=== PATIENT | male | born 1945 | race Caucasian/White ===

== ENCOUNTER 2017-01-17 07:08 | Inpatient (IN) | payer MEDICARE ==
[~2017-01-17] VITALS: Ht 180.3 cm; Wt 84.8 kg
--- NOTE | ~2017-01-17 | PROC NOTE ---
[place], [place] PROCEDURE NOTE NAME: NEHA MICHAEL JR UNIT #: [id number] ROOM: 403 DOCTOR: CAL VERNON BIRTHDATE: [birth year] DOS: 01/17/2017 MODIFIED BARIUM SWALLOW DOCTOR: Chance Garcia DO RADIOLOGIST: Rafael Soto MD BACKGROUND INFORMATION: The patient a 71-year-old male who was seen for modified barium swallow. This test was ordered to rule out aspiration. History is significant for right lower lobe pneumonia, GERD, AFib, DM and HTN. The patient currently receives a regular diet and thin liquids. For today's assessment, he was alert and able to follow all commands. Congested respirations were noted with frequent coughing displayed. Oral peripheral examination revealed presence of natural teeth, which were in good condition. Lingual, labial, and buccal skills were within normal limits in terms of strength, range of motion, and coordination. The patient was able to volitionally cough and swallow. METHODS AND MATERIALS USED FOR THE EXAM: The patient was positioned in the lateral plane and examination was viewed under fluoroscopy. The patient was presented with a variety of consistencies to assess swallowing skills including applesauce mixed with barium presented in half teaspoon amounts, barium-coated cookie presented in bite size piece and thin liquid barium taken by cup and straw. ORAL PHASE: Unremarkable. PHARYNGEAL PHASE: Unremarkable. ESOPHAGEAL PHASE: This phase of the swallow was not formally assessed during this examination. IMPRESSIONS AND RECOMMENDATIONS: Based upon assessment results, this 71-year-old patient presents with swallowing skills that are within normal limits. Recommend that he continue with regular diet and thin liquids. No followup therapy is warranted at this time. Results and recommendations were shared with the patient and his nurse and they verbalized understanding. Thank you very much for this referral. Should you have any questions regarding this patient, please contact the speech pathologist at [phone]. [place], [place] PROCEDURE NOTE NAME: NEHA MICHAEL JR UNIT #: [id number] ROOM: 403 DOCTOR: CAL VERNON BIRTHDATE: [birth year] CAL VERNON CM:PROCNOTE:PROCEDURE NOTE [id number] 11 CAL VERNON
[~2017-01-17 07:08] MED LIST: AUGMENTIN 875875 MG PO; CLONIDINE HCL0.1 MG PO; CLONIDINE0.1 MG PO; CLONIDINE0.2 MG PO; DICYCLOMINE10 MG PO; DILTIAZEM240 MG PO; DOXYCYCLINE100 M3 PO; HUMALOG100 U/ML SC; LANTUS100 U/ML SC; LEVAQUIN750 MG PO; LISINOPRIL AND1 TA2 PO; LISINOPRIL/HCTZ1 TA2 PO; LISINOPRIL10 MG PO; LOSARTAN POTAS100 M1 PO; NEXIUM40 MG PO; PREDNISONE20 MG PO; PROAIR HFA0.09 MG/AC INH; TAGAMET400 MG PO; VICODIN 500 MG-1 TAB PO; WARFARIN SOD5 MG PO; XARE20MG PO; ZOFRAN4 MG PO; Zofran4 MG PO
[2017-01-17 07:24] VITALS: BP 130/75
[2017-01-17 08:40] LABS: BASO % 0.8 % (0.0-1.0); EOS % 0.8 % (1.0-4.0); HEMATOCRIT 38.7 % (42.0-52.0); HEMOGLOBIN 13.4 g/dl (14.0-18.0); LYMPH # 0.7 10*3/uL (1.3-4.4); LYMPH % 17.4 % (27.0-41.0); MEAN CELL VOLUME 91.7 fl (80.0-94.0); MEAN CORPUSCULAR HGB 31.8 pg (27.0-31.0); MEAN CORPUSCULAR HGB CONC 34.6 g/dl (33.0-37.0); MEAN PLATELET VOLUME 10.3 fl (9.6-12.3); MONO # 0.3 10*3/uL (0.1-1.0); MONO % 7.6 % (3.0-9.0); NEUT # 2.9 10*3/uL (2.3-7.9); NEUT % 73.1 % (47.0-73.0); PLATELET COUNT AUTOMATED 206 10*3/uL (130-400); RED BLOOD COUNT 4.22 10*6/uL (4.50-5.90); RED CELL DISTRI WIDTH 11.9 % (0-14.5)
--- NOTE | 2017-01-17 08:51 | NUR ---
PT RETURNING FROM XRAY AT THIS TIME---VALERIE RUIZ RN
[2017-01-17 08:54] LABS: ALBUMIN 3.5 gm/dl (3.1-4.5); ALKALINE PHOSPHATASE 79 U/L (45-117); BUN 8 mg/dl (7-24); CHLORIDE 94 mmol/L (98-107); CREATININE 1.02 mg/dL (0.70-1.30); LIPASE 57 U/L (73-393); POTASSIUM 4.1 mmol/L (3.5-5.1); SGOT/AST 18 IU/L (3-35); SGPT/ALT 24 U/L (12-78); SODIUM 131 mmol/L (136-145); TOTAL PROTEIN 6.7 gm/dL (6.4-8.2)
[2017-01-17 10:37] VITALS: BP 140/71
--- NOTE | 2017-01-17 10:41 | NUR ---
IV LEVAQUIN STARTED.PT BEIND ADMITTED,VOICES UNDERSTANDING.VITALS STABLE.O2 2L APPLIED,PULSE OX 97 ON 2L.---VALERIE RUIZ RN
[2017-01-17 11:00] VITALS: BP 162/73
--- NOTE | 2017-01-17 11:00 | NUR ---
Time: 1100 A 71 year old FEMALE admitted to under services of NAM SCHMIDT DO. Pt. arrived via bed from ER. Chief complaint: RLL PNEUMONIA FAILED OUTPT TREATMENT. ONEIL RAZA
--- NOTE | 2017-01-17 11:42 | NUR ---
CALLED AND SPOKE WITH DR. COHN MADE AWARE PT MEDS ARE UPDATED AND ALSO PT C/O OF PAIN ON AND OFF ABOVE LEFT KNEE RECENTLY. NO INJURY PER PT RECENTLY.
--- NOTE | 2017-01-17 13:51 | NUR ---
CHANA COHN MADE AWARE HOME MEDICATIONS NEED ORDERED YET.
--- NOTE | 2017-01-17 15:06 | NUR ---
SPEECH PATHOLOGY Modified barium swallow completed as per orders to r/o aspiration. Patient is dx with right lower lobe pneumonia, GERD, HTN, GERD, DM. Patient was challenged with puree, solid food and thin liquid administered by cup and straw. Oral and pharyngeal swallowing skills were WNL. Recommend regular diet and thin liquid. No follow up therapy is warranted at this time. Results and recommendations were shared with patient and his nurse and they verbalized understanding. Dictated report to follow. Thank you for this referral. CAL VERNON MSCCC-INFORMATICS PHYSICIAN
--- NOTE | 2017-01-17 15:10 | NUR ---
PT RESTING IN BED. C/O NAUSEA, MEDICATED WITH ZOFRAN IV PER PRN ORDER, SEE EMAR. ALSO [id number], SEE EMAR. ONLY GAVE 8 UNITS PER PT REQUEST. CALL LIGHT IN REACH.
--- NOTE | 2017-01-17 15:29 | NUR ---
[facility] RE[facility]UC[facility]EX.
[2017-01-17 16:00] VITALS: BP 157/65
--- NOTE | 2017-01-17 16:00 | NUR ---
PT RESTING IN BED STATES MEDICAITON WAS EFFECTIVE. HE ORDERED DINNER. CALL LIGHT IN REACH.
--- NOTE | 2017-01-17 18:54 | NUR ---
PT RESTING IN BED WITH EYES CLOSED. RESP-EASY AND REGUAR. CALL LIGHT IN REACH.
[2017-01-17 19:16] LABS: INTERNATIONAL NORM RATIO 1.7 (2.0-3.5)
[2017-01-17 20:00] VITALS: BP 152/64
--- NOTE | 2017-01-17 22:37 | NUR ---
PATIENT RESTING IN BED WITH NO S/S OF DISTRESS. NO NEEDS MADE. ONLY WANTED 9 UNITS OF INSULIN INSTEAD OF 10. BED IN LOWEST POSITION, CALL LIGHT IN REACH
[2017-01-18] VITALS: BP 142/68
--- NOTE | 2017-01-18 00:54 | NUR ---
24 HR chart check completed.
[2017-01-18 04:00] VITALS: BP 138/70
--- NOTE | 2017-01-18 06:03 | NUR ---
BLOOD SUGAR CHECK WAS 166
--- NOTE | 2017-01-18 07:47 | NUR ---
MEDICATED WITH PRN ZOFRAN FOR COMPLAINTS OF NASEAU AND CONSTIPATIONFOR 5 DAYS.
[2017-01-18 08:00] VITALS: BP 141/73
--- NOTE | 2017-01-18 08:15 | NUR ---
Recruitment Manager in to talk to patient. Patient states lives at home alone. There are 3 steps in the home. Physician: Dr. Harpreet Yin Pharmacy: [facility] health services: none Patient's level of ADLs: INDEPENDENT Patient has working utilities: yes DME: none Follow-up physician's appointment after d/c: will be made by hospitalist nurse director upon discharge Does patient want to access PORTAL?: no Discharge plan discussed with patient. He lives in [place] and has neighbors that look out for him. He is independent in his ADLs and ambulation. When medically stable he will be discharged to home. KENRICK GRUBER
[2017-01-18 08:21] LABS: ALBUMIN 3.3 gm/dl (3.1-4.5); ALKALINE PHOSPHATASE 77 U/L (45-117); BUN 12 mg/dl (7-24); CHLORIDE 97 mmol/L (98-107); CHOLESTEROL 147 mg/dL (<200); CREATININE 0.98 mg/dL (0.70-1.30); FREE T4 1.38 ng/dl (0.76-1.46); HDL CHOLESTEROL 88 mg/dl (40-60); LDL CHOLESTEROL 45 mg/dL (9-159); POTASSIUM 3.6 mmol/L (3.5-5.1); SGOT/AST 15 IU/L (3-35); SGPT/ALT 23 U/L (12-78); TOTAL PROTEIN 6.5 gm/dL (6.4-8.2); TRIGLYCERIDES 70 mg/dl (<150); VLDL CHOLESTEROL 14 mg/dL (6-40)
[2017-01-18 08:22] LABS: BASO % 0.6 % (0.0-1.0); EOS % 0.9 % (1.0-4.0); HEMATOCRIT 38.1 % (42.0-52.0); HEMOGLOBIN 13.4 g/dl (14.0-18.0); LYMPH # 1.2 10*3/uL (1.3-4.4); LYMPH % 33.6 % (27.0-41.0); MEAN CELL VOLUME 91.1 fl (80.0-94.0); MEAN CORPUSCULAR HGB 32.1 pg (27.0-31.0); MEAN CORPUSCULAR HGB CONC 35.2 g/dl (33.0-37.0); MEAN PLATELET VOLUME 10.9 fl (9.6-12.3); MONO # 0.4 10*3/uL (0.1-1.0); NEUT # 1.8 10*3/uL (2.3-7.9); NEUT % 52.6 % (47.0-73.0); PLATELET COUNT AUTOMATED 200 10*3/uL (130-400); RED BLOOD COUNT 4.18 10*6/uL (4.50-5.90); RED CELL DISTRI WIDTH 11.9 % (0-14.5); WHITE BLOOD COUNT 3.4 10*3/uL (4.8-10.8)
[2017-01-18 08:25] LABS: SODIUM 132 mmol/L (136-145)
[2017-01-18 08:28] LABS: THYROID STIM HORMONE (HS) 0.447 uIU/ml (0.358-4.75)
[2017-01-18 08:49] LABS: PHOSPHOROUS 2.2 mg/dL (2.5-4.9)
[2017-01-18 09:03] LABS: INTERNATIONAL NORM RATIO 1.7 (2.0-3.5)
[2017-01-18 09:54] LABS: VITAMIN D, 25-HYDROXY 18.9 ng/mL (30-100)
[2017-01-18 12:00] VITALS: BP 130/63
[2017-01-18 16:00] VITALS: BP 141/57
[2017-01-18 20:00] VITALS: BP 156/70
--- NOTE | 2017-01-18 20:05 | NUR ---
DR LEE AWARE OF PATIENT REQUESTING NASAL SPRAY. STATES HE WILL PUT THAT IN
--- NOTE | 2017-01-18 22:20 | NUR ---
PATIENT RESTING IN BED WITH NO NEEDS MADE. BED IN LOWEST POSITION, CALL LIGHT IN REACH
[2017-01-19] VITALS: BP 128/71
--- NOTE | 2017-01-19 00:43 | NUR ---
24 HR chart check completed.
--- NOTE | 2017-01-19 02:59 | NUR ---
PATIENT RESTING IN BED WITH NO S/S OF DISTRESS. BED IN LOWEST POSITION, CALL LIGHT IN REACH
[2017-01-19 07:23] LABS: BASO % 0.3 % (0.0-1.0); HEMATOCRIT 36.1 % (42.0-52.0); HEMOGLOBIN 12.7 g/dl (14.0-18.0); LYMPH # 1.1 10*3/uL (1.3-4.4); LYMPH % 34.6 % (27.0-41.0); MEAN CELL VOLUME 90.7 fl (80.0-94.0); MEAN CORPUSCULAR HGB 31.9 pg (27.0-31.0); MEAN CORPUSCULAR HGB CONC 35.2 g/dl (33.0-37.0); MEAN PLATELET VOLUME 10.5 fl (9.6-12.3); MONO # 0.3 10*3/uL (0.1-1.0); MONO % 10.8 % (3.0-9.0); NEUT # 1.7 10*3/uL (2.3-7.9); NEUT % 52.7 % (47.0-73.0); PLATELET COUNT AUTOMATED 165 10*3/uL (130-400); RED BLOOD COUNT 3.98 10*6/uL (4.50-5.90); RED CELL DISTRI WIDTH 11.8 % (0-14.5); WHITE BLOOD COUNT 3.2 10*3/uL (4.8-10.8)
[2017-01-19 07:56] LABS: ALBUMIN 3.1 gm/dl (3.1-4.5); BUN 8 mg/dl (7-24); CHLORIDE 98 mmol/L (98-107); CREATININE 0.77 mg/dL (0.70-1.30); POTASSIUM 3.5 mmol/L (3.5-5.1); SGOT/AST 20 IU/L (3-35); SGPT/ALT 22 U/L (12-78); SODIUM 132 mmol/L (136-145)
[2017-01-19 07:57] LABS: ALKALINE PHOSPHATASE 71 U/L (45-117)
[2017-01-19 08:00] VITALS: BP 172/72
--- NOTE | 2017-01-19 08:00 | NUR ---
Engine Installer in to see patient. No new needs or request at this time. When medically stable he will be discharged to home.
[2017-01-19] MEDS ORDERED: NEXIUM40 MG PO (11:43)
[2017-01-19 12:00] VITALS: BP 136/65
[2017-01-19 16:00] VITALS: BP 156/71
--- NOTE | 2017-01-19 19:13 | NUR ---
PT C/O NAUSEA, PRN ZOFRAN GIVEN EPR ORDER
[2017-01-19 20:00] VITALS: BP 162/67
--- NOTE | 2017-01-19 21:14 | NUR ---
Medicated with Phenergan po x1 dose for continued nausea. Will monitor effectiveness. Call light within reach.
[2017-01-20] VITALS: BP 126/65
--- NOTE | 2017-01-20 00:16 | NUR ---
24 HR chart check completed.
[2017-01-20 07:23] LABS: BASO % 0.6 % (0.0-1.0); EOS # 0.1 10*3/uL (0.0-0.4); EOS % 3.6 % (1.0-4.0); HEMATOCRIT 36.9 % (42.0-52.0); HEMOGLOBIN 12.8 g/dl (14.0-18.0); LYMPH # 1.5 10*3/uL (1.3-4.4); LYMPH % 42.6 % (27.0-41.0); MEAN CELL VOLUME 90.9 fl (80.0-94.0); MEAN CORPUSCULAR HGB 31.5 pg (27.0-31.0); MEAN CORPUSCULAR HGB CONC 34.7 g/dl (33.0-37.0); MEAN PLATELET VOLUME 10.3 fl (9.6-12.3); MONO # 0.4 10*3/uL (0.1-1.0); MONO % 10.4 % (3.0-9.0); NEUT # 1.5 10*3/uL (2.3-7.9); NEUT % 42.5 % (47.0-73.0); PLATELET COUNT AUTOMATED 183 10*3/uL (130-400); RED BLOOD COUNT 4.06 10*6/uL (4.50-5.90); WHITE BLOOD COUNT 3.6 10*3/uL (4.8-10.8)
[2017-01-20 07:32] LABS: BUN 9 mg/dl (7-24); CHLORIDE 96 mmol/L (98-107); CREATININE 0.93 mg/dL (0.70-1.30); POTASSIUM 3.7 mmol/L (3.5-5.1); SODIUM 131 mmol/L (136-145)
[2017-01-20 07:56] LABS: INTERNATIONAL NORM RATIO 2.1 (2.0-3.5)
[2017-01-20 08:00] VITALS: BP 139/64
--- NOTE | 2017-01-20 08:15 | NUR ---
Digital Photographer in to see patient. He is sitting up on the edge of his bed. Denies any home needs at this time. When medically stable he will be discharged to home.
[2017-01-20] MEDS ORDERED: PHENERGAN25 M3 PO (11:26)
[2017-01-20] MEDS ORDERED: LEVAQUIN750 M1 PO (11:26)
--- NOTE | 2017-01-20 12:34 | NUR ---
Discharge instructions reviewed with patient/family. Patient receptive and verbalizes understanding. Follow-up care arranged. Written instructions given to patient/family. STEVE MCELROY
== END 2017-01-20 12:34 | disposition home or self-care (01) | DRG 178 ==
LOC: ED 07:08 → EDHOLD 10:15 → 4E 10:15
PROVIDERS: Emergency Medicine; Internal Medicine; Student in an Organized Health Care Education/Training Program; ADMIT Internal Medicine
PROC: BD11YZZ Fluoroscopy of Esophagus using Other Contrast (ICD-10-PCS; principal; 2017-01-17)
DX: J15.6 Pneumonia due to other Gram-negative bacteria (principal); E87.1 Hypo-osmolality and hyponatremia; E11.649 Type 2 diabetes mellitus with hypoglycemia without coma; E11.65 Type 2 diabetes mellitus with hyperglycemia; I48.0 Paroxysmal atrial fibrillation; E87.8 Other disorders of electrolyte and fluid balance, not elsewhere classified; D64.9 Anemia, unspecified; R11.0 Nausea; K21.9 Gastro-esophageal reflux disease without esophagitis; D72.810 Lymphocytopenia; I10 Essential (primary) hypertension; Z88.8 Allergy status to other drugs, medicaments and biological substances; Z79.2 Long term (current) use of antibiotics; Z90.49 Acquired absence of other specified parts of digestive tract; Z79.4 Long term (current) use of insulin; Z78.9 Other specified health status; Z85.820 Personal history of malignant melanoma of skin; Z87.891 Personal history of nicotine dependence; Z80.9 Family history of malignant neoplasm, unspecified; Z82.3 Family history of stroke; Z79.01 Long term (current) use of anticoagulants; Z79.899 Other long term (current) drug therapy

== ENCOUNTER 2017-09-12 06:22 | Emergency (ER) | payer MEDICARE ==
[~2017-09-12] VITALS: Ht 177.8 cm; Wt 87.1 kg
[~2017-09-12 06:22] MED LIST changes: +LEVAQUIN750 M1 PO; +PHENERGAN25 M3 PO
[2017-09-12 07:54] VITALS: BP 171/81
== END 2017-09-12 09:09 | disposition home or self-care (01) ==
LOC: ED 06:22
DX: S93.602A Unspecified sprain of left foot, initial encounter (principal); K21.9 Gastro-esophageal reflux disease without esophagitis; I10 Essential (primary) hypertension; E11.9 Type 2 diabetes mellitus without complications; I48.91 Unspecified atrial fibrillation; Z88.8 Allergy status to other drugs, medicaments and biological substances; Z79.2 Long term (current) use of antibiotics; Z79.4 Long term (current) use of insulin; Z79.899 Other long term (current) drug therapy; Y93.H2 Activity, gardening and landscaping; Y93.89 Activity, other specified; Y92.89 Other specified places as the place of occurrence of the external cause; Y99.8 Other external cause status

== ENCOUNTER → 2019-01-16 | Outpatient (CLI) | payer MEDICARE ==
[2019-01-16 12:06] LABS: HEMATOCRIT 44.9 % (42.0-52.0); HEMOGLOBIN 15.1 g/dl (14.0-18.0); MEAN CELL VOLUME 94.1 fl (80.0-94.0); MEAN CORPUSCULAR HGB 31.7 pg (27.0-31.0); MEAN CORPUSCULAR HGB CONC 33.6 g/dl (33.0-37.0); MEAN PLATELET VOLUME 10.4 fl (9.6-12.3); RED BLOOD COUNT 4.77 10*6/uL (4.50-5.90); RED CELL DISTRI WIDTH 12.3 % (0-14.5); WHITE BLOOD COUNT 6.9 10*3/uL (4.8-10.8)
[2019-01-16 12:36] LABS: ALBUMIN 3.8 gm/dl (3.1-4.5); BUN 12 mg/dl (7-24); CHLORIDE 106 mmol/L (98-107); CHOLESTEROL 207 mg/dL (<200); CREATININE 0.99 mg/dL (0.70-1.30); POTASSIUM 3.6 mmol/L (3.5-5.1); SGOT/AST 18 IU/L (3-35); SGPT/ALT 30 U/L (12-78); SODIUM 138 mmol/L (136-145); TRIGLYCERIDES 41 mg/dl (<150); VLDL CHOLESTEROL 8 mg/dL (6-40)
[2019-01-16 12:46] LABS: ALKALINE PHOSPHATASE 86 U/L (45-117); HDL CHOLESTEROL 123 mg/dl (40-60); LDL CHOLESTEROL 76 mg/dL (9-159); TOTAL PROTEIN 7.6 gm/dL (6.4-8.2)
== END | disposition home or self-care (01) ==
LOC: LAB 11:45
PROVIDERS: Family Medicine
DX: E11.9 Type 2 diabetes mellitus without complications (principal); I10 Essential (primary) hypertension; E55.9 Vitamin D deficiency, unspecified; R53.83 Other fatigue

== ENCOUNTER 2019-02-16 08:10 | Inpatient (IN) | payer MEDICARE ==
[2019-02-16] VITALS (9 sets, daily range): BP systolic 141–192; BP diastolic 60–84
[~2019-02-16] VITALS: Ht 177.8 cm; Wt 87.5 kg
[2019-02-16 08:53] LABS: BASO # 0.1 10*3/uL (0.0-0.1); BASO % 1.1 % (0.0-1.0); EOS # 0.1 10*3/uL (0.0-0.4); HEMOGLOBIN 13.9 g/dl (14.0-18.0); LYMPH # 1.5 10*3/uL (1.3-4.4); MEAN CELL VOLUME 96.2 fl (80.0-94.0); MEAN CORPUSCULAR HGB 32.6 pg (27.0-31.0); MEAN CORPUSCULAR HGB CONC 33.9 g/dl (33.0-37.0); MEAN PLATELET VOLUME 10.4 fl (9.6-12.3); MONO # 0.4 10*3/uL (0.1-1.0); NEUT # 4.8 10*3/uL (2.3-7.9); NEUT % 68.6 % (47.0-73.0); PLATELET COUNT AUTOMATED 255 10*3/uL (130-400); RED BLOOD COUNT 4.26 10*6/uL (4.50-5.90); RED CELL DISTRI WIDTH 12.2 % (0-14.5)
[2019-02-16 09:06] LABS: INTERNATIONAL NORM RATIO 2.1 (2.0-3.5)
[2019-02-16 09:12] LABS: ALBUMIN 3.7 gm/dl (3.1-4.5); ALKALINE PHOSPHATASE 80 U/L (45-117); BUN 12 mg/dl (7-24); CHLORIDE 103 mmol/L (98-107); CREATININE 1.15 mg/dL (0.70-1.30); POTASSIUM 3.7 mmol/L (3.5-5.1); SGOT/AST 16 IU/L (3-35); SGPT/ALT 29 U/L (12-78); SODIUM 138 mmol/L (136-145)
[2019-02-16 09:18] LABS: TROPONIN I < 0.015 ng/ml (<0.045)
--- NOTE | 2019-02-16 10:54 | NUR ---
A 73, admitted to , under the services of Dr. SUNITA BARCENAS,SUZIE Barcenas with a diagnosis of CHEST PAIN. Chief complaint is HIGH BLOOD PRESSURE AT HOME. Patient arrived via WC from ER. Monitor applied. Initial assessment completed. Vital signs taken and recorded. DR. SUNITA BARCENAS,SUZIE Barcenas notified of admission to the 4E. See assessment for past medical history, medications and allergies. Patient and/or family oriented to unit. [address] visitation policy reviewed. Clothing/patient valuable form completed. KASSANDRA HUNT
[2019-02-16] MEDS ORDERED: NEXIUM40 MG PO (11:06)
[2019-02-16] MEDS ORDERED: HYDR25T PO (13:03)
--- NOTE | 2019-02-16 13:44 | NUR ---
ANSWERING SERVICE FOR DR. BRUNER NOTIFIED....DR. MRAIN TAKING CALLS.
--- NOTE | 2019-02-16 21:32 | NUR ---
BLOOD SUGAR OBTAINED, 70. NO S/S NEEDED AND PT REFUSES LANTUS. PT STATES THAT HIS BLOOD SUGAR "WILL BOTTOM OUT". SNACK PROVIDED TO PATIENT. ASSESSMENT COMPLETE. NO COMPLAINTS ARE VOICED AT THIS TIME. RESPIRATIONS UNLABORED ON ROOM ON AIR. WILL CONTINUE TO MONITOR. CALL LIGHT IN REACH.
[2019-02-17] VITALS: BP 152/71
--- NOTE | 2019-02-17 | NUR ---
PT RESTING IN BED. RESPIRATIONS EASY AND UNLABORED ON ROOM AIR. NO S/S OF DISTRESS NOTED. CALL LIGHT IN REACH. SAFETY MEASAURES IN PLACE, WILL CONTINUE TO MONITOR.
[2019-02-17 08:00] VITALS: BP 168/70
--- NOTE | 2019-02-17 10:03 | NUR ---
Dietary Internship in to talk to patient. Patient states lives at HOME with ALONE. There are 2 steps in the home. Physician: IGNACIA Pharmacy: [facility] health services: NONE Patient's level of ADLs: INDEPENDENT Patient has working utilities: YES DME: NONE Follow-up physician's appointment after d/c: WILL BE MADE BY HOSPITALIST NURSE DIRECTOR Does patient want to access PORTAL?: NO Discharge plan PT LIVES AT HOME ALONE AND IS INDEPENDENT IN HIS CARE. DENIES ANY NEEDS ON DISCHARGE. PLAN IS TO RETURN HOME WHEN MEDICALLY STABLE. WILL CONTINUE TO FOLLOW. PT STATES HE WILL HAVE A RIDE HOME. . MARIA C BROWN
[2019-02-17 12:00] VITALS: BP 154/71
--- NOTE | 2019-02-17 12:00 | NUR ---
PATIENT WANTING TO LEAVE, CALLED DR. DORSEY WHO STATED HE WOULD BE IN IN A LITTLE WHILE. PATIENT TOOK OFF HEART MONITOR AND HAD THIS RN TAKE OUT HIS IV.
--- NOTE | 2019-02-17 13:50 | NUR ---
PATIENT DISCHARGED TO HOME.
== END 2019-02-17 13:50 | disposition home or self-care (01) | DRG 313 ==
LOC: ED 08:10 → EDHOLD 10:04 → 4E 10:29
PROVIDERS: Internal Medicine; ADMIT Internal Medicine
DX: R07.89 Other chest pain (principal); I16.1 Hypertensive emergency; I10 Essential (primary) hypertension; E11.9 Type 2 diabetes mellitus without complications; I48.0 Paroxysmal atrial fibrillation; K21.0 Gastro-esophageal reflux disease with esophagitis; Z88.8 Allergy status to other drugs, medicaments and biological substances; Z79.01 Long term (current) use of anticoagulants; Z85.828 Personal history of other malignant neoplasm of skin; Z87.891 Personal history of nicotine dependence; Z82.3 Family history of stroke; Z80.9 Family history of malignant neoplasm, unspecified; Z82.49 Family history of ischemic heart disease and other diseases of the circulatory system; Z79.899 Other long term (current) drug therapy

== ENCOUNTER → 2019-04-17 | Outpatient (CLI) | payer MEDICARE ==
[~2019-04-17] MED LIST changes: +HYDR25T PO
[2019-04-17 10:07] LABS: HEMATOCRIT 40.2 % (42.0-52.0); HEMOGLOBIN 13.4 g/dl (14.0-18.0); MEAN CELL VOLUME 95.9 fl (80.0-94.0); MEAN CORPUSCULAR HGB CONC 33.3 g/dl (33.0-37.0); MEAN PLATELET VOLUME 10.4 fl (9.6-12.3); RED BLOOD COUNT 4.19 10*6/uL (4.50-5.90); RED CELL DISTRI WIDTH 12.4 % (0-14.5); WHITE BLOOD COUNT 5.1 10*3/uL (4.8-10.8)
[2019-04-17 10:38] LABS: ALBUMIN 3.5 gm/dl (3.1-4.5); CHLORIDE 104 mmol/L (98-107); POTASSIUM 3.6 mmol/L (3.5-5.1); SODIUM 138 mmol/L (136-145)
[2019-04-17 10:42] LABS: ALKALINE PHOSPHATASE 79 U/L (45-117); BUN 7 mg/dl (7-24); CHOLESTEROL 180 mg/dL (<200); CPK 69 U/L (39-308); CREATININE 0.96 mg/dL (0.70-1.30); HDL CHOLESTEROL 114 mg/dl (40-60); LDL CHOLESTEROL 53 mg/dL (9-159); SGOT/AST 18 IU/L (3-35); SGPT/ALT 28 U/L (12-78); TOTAL PROTEIN 6.7 gm/dL (6.4-8.2); TRIGLYCERIDES 64 mg/dl (<150); VLDL CHOLESTEROL 13 mg/dL (6-40)
== END | disposition home or self-care (01) ==
LOC: LAB 09:30
PROVIDERS: Family Medicine
DX: E11.9 Type 2 diabetes mellitus without complications (principal); I10 Essential (primary) hypertension; E78.00 Pure hypercholesterolemia, unspecified; I25.10 Atherosclerotic heart disease of native coronary artery without angina pectoris; E55.9 Vitamin D deficiency, unspecified

== ENCOUNTER → 2019-04-23 | Outpatient (CLI) | payer MEDICARE | END | disposition home or self-care (01) | LOC: LAB 10:26 | DX: E11.9 Type 2 diabetes mellitus without complications (principal) ==

== ENCOUNTER → 2019-08-26 | Outpatient (CLI) | payer MEDICARE ==
[2019-08-26 10:30] LABS: HEMATOCRIT 40.1 % (42.0-52.0); MEAN CELL VOLUME 93.9 fl (80.0-94.0); MEAN CORPUSCULAR HGB 31.4 pg (27.0-31.0); MEAN CORPUSCULAR HGB CONC 33.4 g/dl (33.0-37.0); MEAN PLATELET VOLUME 10.5 fl (9.6-12.3); RED BLOOD COUNT 4.27 10*6/uL (4.50-5.90); RED CELL DISTRI WIDTH 12.3 % (0-14.5); WHITE BLOOD COUNT 5.4 10*3/uL (4.8-10.8)
[2019-08-26 11:03] LABS: ALBUMIN 3.6 gm/dl (3.1-4.5); ALKALINE PHOSPHATASE 85 U/L (45-117); BUN 10 mg/dl (7-24); CHLORIDE 102 mmol/L (98-107); CHOLESTEROL 184 mg/dL (<200); CREATININE 0.97 mg/dL (0.70-1.30); HDL CHOLESTEROL 113 mg/dl (40-60); LDL CHOLESTEROL 62 mg/dL (9-159); POTASSIUM 3.9 mmol/L (3.5-5.1); SGOT/AST 17 IU/L (3-35); SGPT/ALT 23 U/L (12-78); SODIUM 135 mmol/L (136-145); TOTAL PROTEIN 6.9 gm/dL (6.4-8.2); TRIGLYCERIDES 46 mg/dl (<150); VLDL CHOLESTEROL 9 mg/dL (6-40)
== END | disposition home or self-care (01) ==
LOC: LAB 09:20
PROVIDERS: Family Medicine
DX: E11.9 Type 2 diabetes mellitus without complications (principal); E55.9 Vitamin D deficiency, unspecified; E78.00 Pure hypercholesterolemia, unspecified

== ENCOUNTER → 2020-12-23 | Outpatient (CLI) | payer MEDICARE | END | disposition home or self-care (01) | LOC: RESCLI 00:38 | PROVIDERS: ATTEND Student in an Organized Health Care Education/Training Program | DX: I10 Essential (primary) hypertension (principal); E11.9 Type 2 diabetes mellitus without complications; I48.91 Unspecified atrial fibrillation; K21.9 Gastro-esophageal reflux disease without esophagitis; K59.00 Constipation, unspecified; Z87.891 Personal history of nicotine dependence; Z72.89 Other problems related to lifestyle; Z98.890 Other specified postprocedural states; Z79.01 Long term (current) use of anticoagulants; Z79.899 Other long term (current) drug therapy ==

== ENCOUNTER → 2021-06-25 | Outpatient (CLI) | payer MEDICARE | END | disposition home or self-care (01) | LOC: RESCLI 00:45 | PROVIDERS: ATTEND Internal Medicine | DX: K21.9 Gastro-esophageal reflux disease without esophagitis (principal); E11.9 Type 2 diabetes mellitus without complications; I10 Essential (primary) hypertension; I48.91 Unspecified atrial fibrillation; Z79.899 Other long term (current) drug therapy; Z98.890 Other specified postprocedural states ==

== ENCOUNTER → 2021-06-28 | Outpatient (CLI) | payer MEDICARE ==
[2021-06-28 09:47] LABS: BASO % 0.6 % (0.0-1.0); EOS # 0.2 10*3/uL (0.0-0.4); EOS % 2.9 % (1.0-4.0); HEMATOCRIT 34.9 % (42.0-52.0); LYMPH # 1.3 10*3/uL (1.3-4.4); LYMPH % 17.5 % (27.0-41.0); MEAN CELL VOLUME 90.4 fl (80.0-94.0); MEAN CORPUSCULAR HGB 29.5 pg (27.0-31.0); MEAN CORPUSCULAR HGB CONC 32.7 g/dl (33.0-37.0); MEAN PLATELET VOLUME 9.8 fl (9.6-12.3); MONO # 0.4 10*3/uL (0.1-1.0); NEUT # 5.2 10*3/uL (2.3-7.9); NEUT % 72.7 % (47.0-73.0); PLATELET COUNT AUTOMATED 338 10*3/uL (130-400); RED BLOOD COUNT 3.86 10*6/uL (4.50-5.90); RED CELL DISTRI WIDTH 13.4 % (0-14.5); WHITE BLOOD COUNT 7.2 10*3/uL (4.8-10.8)
[2021-06-28 10:15] LABS: CHLORIDE 107 mmol/L (98-107); SODIUM 139 mmol/L (136-145)
[2021-06-28 10:23] LABS: ALKALINE PHOSPHATASE 93 U/L (45-117); BUN 12 mg/dl (7-24); CHOLESTEROL 159 mg/dL (<200); CREATININE 0.92 mg/dL (0.70-1.30); LDL CHOLESTEROL 46 mg/dL (9-159); SGOT/AST 13 IU/L (3-35); SGPT/ALT 19 U/L (12-78); TOTAL PROTEIN 6.8 gm/dL (6.4-8.2); TRIGLYCERIDES 40 mg/dl (<150)
[2021-06-29 08:09] LABS: HEPATITIS B SURFACE AG Negative (Negative)
== END | disposition home or self-care (01) ==
LOC: LAB 09:15
PROVIDERS: ATTEND Internal Medicine
DX: E11.9 Type 2 diabetes mellitus without complications (principal); Z72.89 Other problems related to lifestyle; Z12.5 Encounter for screening for malignant neoplasm of prostate

== ENCOUNTER → 2021-12-23 | Outpatient (CLI) | payer MEDICARE ==
[2021-12-23 15:32] LABS: BUN 12 mg/dl (7-24); CHLORIDE 107 mmol/L (98-107); CHOLESTEROL 181 mg/dL (<200); CREATININE 1.15 mg/dL (0.70-1.30); POTASSIUM 3.8 mmol/L (3.5-5.1); SODIUM 141 mmol/L (136-145); TRIGLYCERIDES 45 mg/dl (<150)
[2021-12-23 15:33] LABS: LDL CHOLESTEROL 66 mg/dL (9-159)
== END | disposition home or self-care (01) ==
LOC: RESCLI 00:54
PROVIDERS: ATTEND Internal Medicine
DX: E11.9 Type 2 diabetes mellitus without complications (principal); K21.9 Gastro-esophageal reflux disease without esophagitis; I10 Essential (primary) hypertension; I48.91 Unspecified atrial fibrillation; Z88.8 Allergy status to other drugs, medicaments and biological substances; Z87.891 Personal history of nicotine dependence; Z98.890 Other specified postprocedural states; Z82.49 Family history of ischemic heart disease and other diseases of the circulatory system; Z79.4 Long term (current) use of insulin; Z79.899 Other long term (current) drug therapy

== ENCOUNTER → 2022-03-31 | Outpatient (CLI) | payer MEDICARE | END | disposition home or self-care (01) | LOC: RESCLI 00:46 | PROVIDERS: ATTEND Student in an Organized Health Care Education/Training Program | DX: I10 Essential (primary) hypertension (principal); I48.91 Unspecified atrial fibrillation; E11.9 Type 2 diabetes mellitus without complications; K21.9 Gastro-esophageal reflux disease without esophagitis; Z98.890 Other specified postprocedural states; Z82.49 Family history of ischemic heart disease and other diseases of the circulatory system; F10.90 Alcohol use, unspecified, uncomplicated; Z79.01 Long term (current) use of anticoagulants; Z79.4 Long term (current) use of insulin; Z79.899 Other long term (current) drug therapy ==

== ENCOUNTER → 2022-05-17 | Outpatient (CLI) | payer MEDICARE ==
[2022-05-17 11:33] LABS: BUN 9 mg/dl (9-23); CHLORIDE 103 mmol/L (98-107); POTASSIUM 4.2 mmol/L (3.4-5.1)
== END | disposition home or self-care (01) ==
LOC: RESCLI 05-16 16:04
PROVIDERS: Internal Medicine; ATTEND Family Medicine
DX: I11.0 Hypertensive heart disease with heart failure (principal); I50.9 Heart failure, unspecified; K21.9 Gastro-esophageal reflux disease without esophagitis; E11.9 Type 2 diabetes mellitus without complications; I48.91 Unspecified atrial fibrillation; Z88.8 Allergy status to other drugs, medicaments and biological substances; Z98.890 Other specified postprocedural states; Z79.01 Long term (current) use of anticoagulants; Z79.899 Other long term (current) drug therapy

== ENCOUNTER → 2022-06-21 | Outpatient (CLI) | payer MEDICARE | END | disposition home or self-care (01) | LOC: RESCLI 00:41 | PROVIDERS: ATTEND Internal Medicine | DX: R06.09 Other forms of dyspnea (principal); I11.0 Hypertensive heart disease with heart failure; I50.30 Unspecified diastolic (congestive) heart failure; K21.9 Gastro-esophageal reflux disease without esophagitis; E11.9 Type 2 diabetes mellitus without complications; I48.91 Unspecified atrial fibrillation; Z88.8 Allergy status to other drugs, medicaments and biological substances; Z87.891 Personal history of nicotine dependence; Z79.01 Long term (current) use of anticoagulants; Z98.890 Other specified postprocedural states; Z79.899 Other long term (current) drug therapy ==

== ENCOUNTER 2022-06-30 17:48 | Inpatient (IN) | payer MEDICARE ==
[~2022-06-30] VITALS: Ht 177.8 cm; Wt 97.5 kg
[2022-06-30 17:57] VITALS: BP 158/73
[2022-06-30 18:20] LABS: BASO # 0.1 10*3/uL (0.0-0.1); BASO % 1.3 % (0.0-1.0); EOS # 0.1 10*3/uL (0.0-0.4); EOS % 2.7 % (1.0-4.0); HEMATOCRIT 33.5 % (42.0-52.0); LYMPH # 1.7 10*3/uL (1.3-4.4); LYMPH % 32.2 % (27.0-41.0); MEAN CELL VOLUME 82.1 fl (80.0-94.0); MEAN CORPUSCULAR HGB 25.5 pg (27.0-31.0); MEAN PLATELET VOLUME 9.5 fl (9.6-12.3); MONO # 0.4 10*3/uL (0.1-1.0); MONO % 6.8 % (3.0-9.0); NEUT % 56.8 % (47.0-73.0); PLATELET COUNT AUTOMATED 360 10*3/uL (130-400); RED BLOOD COUNT 4.08 10*6/uL (4.50-5.90); RED CELL DISTRI WIDTH 15.4 % (0-14.5); WHITE BLOOD COUNT 5.3 10*3/uL (4.8-10.8)
[2022-06-30 18:44] LABS: ALKALINE PHOSPHATASE 81 U/L (46-116); BUN 9 mg/dl (9-23); CHLORIDE 101 mmol/L (98-107); POTASSIUM 3.9 mmol/L (3.4-5.1); SGPT/ALT 17 U/L (10-49); TOTAL PROTEIN 6.7 gm/dL (6.0-8.0)
[2022-06-30 19:01] VITALS: BP 134/77
[2022-06-30 20:35] LABS: INTERNATIONAL NORM RATIO 1.2 (2.0-3.5)
[2022-06-30 20:40] VITALS: BP 141/74
[2022-06-30] MEDS ORDERED: ENTRESTO 24 MG1 EACH PO (21:03)
[2022-06-30] MEDS ORDERED: FUROSEMIDE40 MG PO (21:04)
[2022-06-30] MEDS ORDERED: XARE20MG PO (21:04)
[2022-07-01] VITALS: BP 130/83
[2022-07-01 06:25] LABS: BASO # 0.1 10*3/uL (0.0-0.1); BASO % 1.3 % (0.0-1.0); EOS # 0.3 10*3/uL (0.0-0.4); EOS % 6.1 % (1.0-4.0); HEMATOCRIT 33.8 % (42.0-52.0); LYMPH # 1.6 10*3/uL (1.3-4.4); LYMPH % 34.9 % (27.0-41.0); MEAN CELL VOLUME 83.7 fl (80.0-94.0); MEAN CORPUSCULAR HGB 25.5 pg (27.0-31.0); MEAN CORPUSCULAR HGB CONC 30.5 g/dl (33.0-37.0); MONO # 0.5 10*3/uL (0.1-1.0); MONO % 11.4 % (3.0-9.0); NEUT # 2.1 10*3/uL (2.3-7.9); NEUT % 45.9 % (47.0-73.0); PLATELET COUNT AUTOMATED 358 10*3/uL (130-400); RED BLOOD COUNT 4.04 10*6/uL (4.50-5.90); RED CELL DISTRI WIDTH 15.5 % (0-14.5); WHITE BLOOD COUNT 4.6 10*3/uL (4.8-10.8)
[2022-07-01 06:32] LABS: ALKALINE PHOSPHATASE 66 U/L (46-116); BUN 9 mg/dl (9-23); CHLORIDE 104 mmol/L (98-107); CHOLESTEROL 147 mg/dL (<200); FREE T4 1.09 ng/dl (0.89-1.76); LDL CHOLESTEROL 61 mg/dL (9-159); POTASSIUM 3.9 mmol/L (3.4-5.1); SGPT/ALT 15 U/L (10-49); THYROID STIM HORMONE (HS) 1.068 uIU/ml (0.550-4.780); TOTAL PROTEIN 6.2 gm/dL (6.0-8.0); TRIGLYCERIDES 41 mg/dl (<150)
[2022-07-01 08:00] VITALS: BP 136/76
[2022-07-01 12:00] VITALS: BP 138/72
[2022-07-01 16:00] VITALS: BP 140/71
[2022-07-01 20:00] VITALS: BP 140/84
[2022-07-02] VITALS (9 sets, daily range): BP systolic 116–152; BP diastolic 57–72
[2022-07-02 06:40] LABS: BASO # 0.1 10*3/uL (0.0-0.1); BASO % 1.4 % (0.0-1.0); EOS # 0.2 10*3/uL (0.0-0.4); EOS % 3.3 % (1.0-4.0); LYMPH # 1.5 10*3/uL (1.3-4.4); MEAN CELL VOLUME 82.9 fl (80.0-94.0); MEAN CORPUSCULAR HGB 25.1 pg (27.0-31.0); MEAN CORPUSCULAR HGB CONC 30.3 g/dl (33.0-37.0); MONO # 0.4 10*3/uL (0.1-1.0); MONO % 8.6 % (3.0-9.0); NEUT # 2.9 10*3/uL (2.3-7.9); NEUT % 57.5 % (47.0-73.0); PLATELET COUNT AUTOMATED 380 10*3/uL (130-400); RED BLOOD COUNT 4.34 10*6/uL (4.50-5.90); RED CELL DISTRI WIDTH 15.4 % (0-14.5); WHITE BLOOD COUNT 5.1 10*3/uL (4.8-10.8)
[2022-07-02 07:15] LABS: BUN 12 mg/dl (9-23); CHLORIDE 99 mmol/L (98-107); POTASSIUM 3.7 mmol/L (3.4-5.1)
[2022-07-03] VITALS: BP 113/54
[2022-07-03 06:10] LABS: BASO # 0.1 10*3/uL (0.0-0.1); BASO % 0.9 % (0.0-1.0); EOS # 0.1 10*3/uL (0.0-0.4); EOS % 2.2 % (1.0-4.0); HEMATOCRIT 32.2 % (42.0-52.0); LYMPH # 1.3 10*3/uL (1.3-4.4); LYMPH % 22.3 % (27.0-41.0); MEAN CELL VOLUME 81.1 fl (80.0-94.0); MEAN CORPUSCULAR HGB 25.7 pg (27.0-31.0); MEAN CORPUSCULAR HGB CONC 31.7 g/dl (33.0-37.0); MEAN PLATELET VOLUME 9.9 fl (9.6-12.3); MONO # 0.5 10*3/uL (0.1-1.0); MONO % 8.7 % (3.0-9.0); NEUT # 3.8 10*3/uL (2.3-7.9); NEUT % 65.6 % (47.0-73.0); PLATELET COUNT AUTOMATED 342 10*3/uL (130-400); RED BLOOD COUNT 3.97 10*6/uL (4.50-5.90); RED CELL DISTRI WIDTH 15.5 % (0-14.5); WHITE BLOOD COUNT 5.8 10*3/uL (4.8-10.8)
[2022-07-03 08:00] VITALS: BP 115/55
[2022-07-03 08:32] LABS: BUN 19 mg/dl (9-23); CHLORIDE 98 mmol/L (98-107); POTASSIUM 3.8 mmol/L (3.4-5.1)
[2022-07-03 12:00] VITALS: BP 94/62
[2022-07-03] MEDS ORDERED: ENTRESTO 24 MG1 EACH PO (13:49)
[2022-07-03] MEDS ORDERED: ALDACTONE25 MG PO (13:49)
[2022-07-03] MEDS ORDERED: METOPROLOL SUCC50 M1 PO (13:49)
== END 2022-07-03 14:54 | disposition home or self-care (01) | DRG 291 ==
LOC: ED 17:48 → 4E 18:48 → EDHOLD 18:48 → 4E 20:11
PROVIDERS: Emergency Medicine; Internal Medicine; ADMIT Family Medicine; ATTEND Family Medicine
DX: I11.0 Hypertensive heart disease with heart failure (principal); I50.33 Acute on chronic diastolic (congestive) heart failure; J98.11 Atelectasis; D64.9 Anemia, unspecified; K21.9 Gastro-esophageal reflux disease without esophagitis; E66.09 Other obesity due to excess calories; Z66 Do not resuscitate; I48.0 Paroxysmal atrial fibrillation; E11.65 Type 2 diabetes mellitus with hyperglycemia; Z79.4 Long term (current) use of insulin; Z88.8 Allergy status to other drugs, medicaments and biological substances; Z87.891 Personal history of nicotine dependence; Z79.899 Other long term (current) drug therapy; Z71.3 Dietary counseling and surveillance; Z90.49 Acquired absence of other specified parts of digestive tract; Z68.30 Body mass index [BMI] 30.0-30.9, adult

== ENCOUNTER → 2022-10-05 | Outpatient (CLI) | payer MEDICARE ==
[~2022-10-05] MED LIST changes: +ALDACTONE25 MG PO; +ENTRESTO 24 MG1 EACH PO; +FUROSEMIDE40 MG PO; +METOPROLOL SUCC50 M1 PO
[2022-10-05 10:10] LABS: BASO # 0.1 10*3/uL (0.0-0.1); BASO % 1.8 % (0.0-1.0); EOS # 0.2 10*3/uL (0.0-0.4); HEMATOCRIT 33.6 % (42.0-52.0); LYMPH # 1.3 10*3/uL (1.3-4.4); LYMPH % 32.6 % (27.0-41.0); MEAN CELL VOLUME 84.2 fl (80.0-94.0); MEAN CORPUSCULAR HGB 26.3 pg (27.0-31.0); MEAN CORPUSCULAR HGB CONC 31.3 g/dl (33.0-37.0); MEAN PLATELET VOLUME 9.8 fl (9.6-12.3); MONO # 0.3 10*3/uL (0.1-1.0); MONO % 8.3 % (3.0-9.0); NEUT # 2.1 10*3/uL (2.3-7.9); NEUT % 52.8 % (47.0-73.0); PLATELET COUNT AUTOMATED 314 10*3/uL (130-400); RED BLOOD COUNT 3.99 10*6/uL (4.50-5.90); RED CELL DISTRI WIDTH 16.1 % (0-14.5)
[2022-10-05 10:22] LABS: URINE CREATININE RANDOM 15.92 mg/dL
[2022-10-05 11:02] LABS: ALKALINE PHOSPHATASE 72 U/L (46-116); BUN 12 mg/dl (9-23); CHLORIDE 105 mmol/L (98-107); CHOLESTEROL 152 mg/dL (<200); LDL CHOLESTEROL 50 mg/dL (9-159); POTASSIUM 4.4 mmol/L (3.4-5.1); SGPT/ALT 10 U/L (10-49); TOTAL PROTEIN 6.8 gm/dL (6.0-8.0); TRIGLYCERIDES 95 mg/dl (<150)
== END | disposition home or self-care (01) ==
LOC: RESCLI 01:16
PROVIDERS: Student in an Organized Health Care Education/Training Program; ATTEND Internal Medicine
DX: I11.0 Hypertensive heart disease with heart failure (principal); I50.9 Heart failure, unspecified; E11.9 Type 2 diabetes mellitus without complications; I48.91 Unspecified atrial fibrillation; K21.9 Gastro-esophageal reflux disease without esophagitis; I50.30 Unspecified diastolic (congestive) heart failure; J30.2 Other seasonal allergic rhinitis; Z98.890 Other specified postprocedural states; Z88.8 Allergy status to other drugs, medicaments and biological substances; Z87.891 Personal history of nicotine dependence; Z79.899 Other long term (current) drug therapy

== ENCOUNTER 2023-08-20 10:34 | Emergency (ER) | payer MEDICARE ==
[~2023-08-20] VITALS: Ht 177.8 cm; Wt 90.7 kg
[2023-08-20 10:55] VITALS: BP 143/83
[2023-08-20 11:27] LABS: BASO % 0.9 % (0.0-1.0); EOS # 0.2 10*3/uL (0.0-0.4); EOS % 3.7 % (1.0-4.0); HEMATOCRIT 33.3 % (42.0-52.0); LYMPH # 1.3 10*3/uL (1.3-4.4); LYMPH % 28.4 % (27.0-41.0); MEAN CELL VOLUME 78.9 fl (80.0-94.0); MEAN CORPUSCULAR HGB 24.6 pg (27.0-31.0); MEAN CORPUSCULAR HGB CONC 31.2 g/dl (33.0-37.0); MEAN PLATELET VOLUME 9.5 fl (9.6-12.3); MONO # 0.4 10*3/uL (0.1-1.0); MONO % 8.3 % (3.0-9.0); NEUT # 2.7 10*3/uL (2.3-7.9); NEUT % 58.5 % (47.0-73.0); PLATELET COUNT AUTOMATED 282 10*3/uL (130-400); RED BLOOD COUNT 4.22 10*6/uL (4.50-5.90); RED CELL DISTRI WIDTH 16.3 % (0-14.5); WHITE BLOOD COUNT 4.6 10*3/uL (4.8-10.8)
[2023-08-20 11:49] LABS: BUN 6 mg/dl (9-23); CHLORIDE 99 mmol/L (98-107); POTASSIUM 3.3 mmol/L (3.4-5.1)
[2023-08-20] MEDS ORDERED: POTASSIUM CHLORIDE 20 MEQ TAB PO ONE (12:15)
[2023-08-20] MEDS ORDERED: AVPAK AZITHROM250 M1 PO (14:05)
[2023-08-20] MEDS ORDERED: PREDNISONE20 M1 PO (14:05)
[2023-08-20] MEDS ORDERED: AZITHROMYCIN 250 MG TAB PO ONE (14:10)
[2023-08-20] MEDS ORDERED: methylPREDNISolone sod succ 125 MG VIAL IM ONE (14:10)
== END 2023-08-20 14:27 | disposition home or self-care (01) ==
LOC: ED 10:34
PROVIDERS: Nurse Practitioner Family
DX: J40 Bronchitis, not specified as acute or chronic (principal); E87.6 Hypokalemia; I50.9 Heart failure, unspecified; D64.9 Anemia, unspecified; E11.65 Type 2 diabetes mellitus with hyperglycemia; K21.9 Gastro-esophageal reflux disease without esophagitis; I11.0 Hypertensive heart disease with heart failure; I48.91 Unspecified atrial fibrillation; Z88.8 Allergy status to other drugs, medicaments and biological substances; Z90.49 Acquired absence of other specified parts of digestive tract; Z87.891 Personal history of nicotine dependence

== ENCOUNTER → 2023-09-29 | Outpatient (CLI) | payer MEDICARE ==
[~2023-09-29] MED LIST changes: +AVPAK AZITHROM250 M1 PO; +PREDNISONE20 M1 PO
== END | disposition home or self-care (01) ==
LOC: RESCLI 03:02
PROVIDERS: ATTEND Family Medicine
DX: E10.9 Type 1 diabetes mellitus without complications (principal); I48.91 Unspecified atrial fibrillation; I50.9 Heart failure, unspecified; I50.30 Unspecified diastolic (congestive) heart failure; K21.9 Gastro-esophageal reflux disease without esophagitis; M79.89 Other specified soft tissue disorders; Z98.890 Other specified postprocedural states; Z79.899 Other long term (current) drug therapy; Z88.8 Allergy status to other drugs, medicaments and biological substances

== ENCOUNTER → 2023-10-24 | Outpatient (CLI) | payer MEDICARE ==
[2023-10-24 08:42] LABS: BASO # 0.1 10*3/uL (0.0-0.1); EOS # 0.2 10*3/uL (0.0-0.4); EOS % 3.2 % (1.0-4.0); LYMPH # 1.7 10*3/uL (1.3-4.4); LYMPH % 26.3 % (27.0-41.0); MEAN CELL VOLUME 80.5 fl (80.0-94.0); MEAN CORPUSCULAR HGB 24.7 pg (27.0-31.0); MEAN CORPUSCULAR HGB CONC 30.6 g/dl (33.0-37.0); MEAN PLATELET VOLUME 10.1 fl (9.6-12.3); MONO # 0.4 10*3/uL (0.1-1.0); MONO % 6.4 % (3.0-9.0); NEUT % 62.8 % (47.0-73.0); PLATELET COUNT AUTOMATED 265 10*3/uL (130-400); RED BLOOD COUNT 3.85 10*6/uL (4.50-5.90); RED CELL DISTRI WIDTH 17.6 % (0-14.5); WHITE BLOOD COUNT 6.3 10*3/uL (4.8-10.8)
[2023-10-24 09:23] LABS: VITAMIN D, 25-HYDROXY 35.2 ng/mL (30-100)
[2023-10-24 09:30] LABS: ALKALINE PHOSPHATASE 75 U/L (46-116); BUN 12 mg/dl (9-23); CHLORIDE 105 mmol/L (98-107); CHOLESTEROL 146 mg/dL (<200); LDL CHOLESTEROL 47 mg/dL (9-159); POTASSIUM 4.4 mmol/L (3.4-5.1); SGPT/ALT 9 U/L (5-49); TOTAL PROTEIN 6.4 gm/dL (6.0-8.0); TRIGLYCERIDES 78 mg/dl (<150)
== END | disposition home or self-care (01) ==
LOC: LAB 08:12
PROVIDERS: Student in an Organized Health Care Education/Training Program; ATTEND Internal Medicine
DX: E10.9 Type 1 diabetes mellitus without complications (principal); E55.9 Vitamin D deficiency, unspecified

== ENCOUNTER → 2024-02-22 | Outpatient (CLI) | payer MEDICARE | END | disposition home or self-care (01) | LOC: RESCLI 02-21 01:47 | PROVIDERS: ATTEND Internal Medicine | DX: I11.0 Hypertensive heart disease with heart failure (principal); I50.30 Unspecified diastolic (congestive) heart failure; I48.91 Unspecified atrial fibrillation; K21.9 Gastro-esophageal reflux disease without esophagitis; E10.9 Type 1 diabetes mellitus without complications; Z98.890 Other specified postprocedural states; Z82.49 Family history of ischemic heart disease and other diseases of the circulatory system; Z79.899 Other long term (current) drug therapy ==

== ENCOUNTER → 2024-03-18 | Outpatient (CLI) | payer MEDICARE | END | disposition home or self-care (01) | LOC: LAB 07:50 | PROVIDERS: ATTEND Internal Medicine | DX: E10.9 Type 1 diabetes mellitus without complications (principal) ==

== ENCOUNTER 2024-07-06 15:20 | Emergency (ER) | payer MEDICARE ==
[~2024-07-06] VITALS: Ht 180.3 cm; Wt 90.7 kg
[2024-07-06 15:29] VITALS: BP 152/104
[2024-07-06] MEDS ORDERED: Metoclopramide Hydrochloride 10 MG/2 ML VIAL IV ONE (15:40)
[2024-07-06] MEDS ORDERED: diphenhydrAMINE hydrochloride 50 MG/ML VIAL IV ONE (15:40)
[2024-07-06 15:56] LABS: BASO # 0.1 10*3/uL (0.0-0.1); BASO % 0.6 % (0.0-1.0); EOS # 0.1 10*3/uL (0.0-0.4); EOS % 0.9 % (1.0-4.0); HEMATOCRIT 32.7 % (42.0-52.0); MEAN CORPUSCULAR HGB 23.3 pg (27.0-31.0); MEAN CORPUSCULAR HGB CONC 30.6 g/dl (33.0-37.0); MONO # 0.7 10*3/uL (0.1-1.0); MONO % 8.2 % (3.0-9.0); NEUT # 6.3 10*3/uL (2.3-7.9); NEUT % 79.2 % (47.0-73.0); PLATELET COUNT AUTOMATED 244 10*3/uL (130-400); RED CELL DISTRI WIDTH 17.9 % (0-14.5); WHITE BLOOD COUNT 7.9 10*3/uL (4.8-10.8)
[2024-07-06 16:14] LABS: BUN 9 mg/dl (9-23); CHLORIDE 101 mmol/L (98-107); POTASSIUM 3.6 mmol/L (3.4-5.1)
[2024-07-06] MEDS ORDERED: LEVOFLOXACIN750 M2 PO (16:35)
[2024-07-06] MEDS ORDERED: REGLAN10 M1 PO (16:35)
== END 2024-07-06 16:41 | disposition home or self-care (01) ==
LOC: ED 15:20
PROVIDERS: Emergency Medicine
DX: J40 Bronchitis, not specified as acute or chronic (principal); R11.2 Nausea with vomiting, unspecified; I48.91 Unspecified atrial fibrillation; E11.9 Type 2 diabetes mellitus without complications; E78.5 Hyperlipidemia, unspecified; I11.0 Hypertensive heart disease with heart failure; I50.9 Heart failure, unspecified; Z79.899 Other long term (current) drug therapy; Z79.4 Long term (current) use of insulin; Z90.49 Acquired absence of other specified parts of digestive tract; Z87.891 Personal history of nicotine dependence

== ENCOUNTER → 2024-09-11 | Outpatient (CLI) | payer MEDICARE ==
[~2024-09-11] MED LIST changes: +LEVOFLOXACIN750 M2 PO; +REGLAN10 M1 PO
[2024-09-11 14:31] LABS: BASO # 0.1 10*3/uL (0.0-0.1); BASO % 1.1 % (0.0-1.0); EOS # 0.1 10*3/uL (0.0-0.4); EOS % 2.3 % (1.0-4.0); MEAN CELL VOLUME 79.2 fl (80.0-94.0); MEAN CORPUSCULAR HGB 23.6 pg (27.0-31.0); MEAN PLATELET VOLUME 9.7 fl (9.6-12.3); MONO # 0.4 10*3/uL (0.1-1.0); MONO % 7.3 % (3.0-9.0); NEUT # 3.2 10*3/uL (2.3-7.9); NEUT % 57.2 % (47.0-73.0); NUCLEATED RED BLOOD CELL 0.0 % (0.0-0.0); NUCLEATED RED BLOOD CELL 0.0 10*3/uL (0.0-0.0); PLATELET COUNT AUTOMATED 263 10*3/uL (130-400); RED CELL DISTRI WIDTH 18.6 % (0-14.5)
[2024-09-11 15:06] LABS: BUN 10 mg/dl (9-23); LDL CHOLESTEROL 61 mg/dL (9-159); SGPT/ALT 9 U/L (5-49)
[2024-09-11 15:08] LABS: VITAMIN D, 25-HYDROXY 31.2 ng/mL (30-100)
== END | disposition home or self-care (01) ==
LOC: RESCLI 01:52 → LAB 03:59
PROVIDERS: Student in an Organized Health Care Education/Training Program; ATTEND Internal Medicine
DX: I50.30 Unspecified diastolic (congestive) heart failure (principal); E10.9 Type 1 diabetes mellitus without complications; I48.91 Unspecified atrial fibrillation; K21.9 Gastro-esophageal reflux disease without esophagitis; J30.2 Other seasonal allergic rhinitis; Z79.899 Other long term (current) drug therapy